=== PATIENT | female | born 1990 | race Hispanic/Latino ===

== ENCOUNTER 2025-03-23 15:48 | Emergency (ER) | payer BC, OTHER | END 2025-03-23 18:12 | disposition home or self-care (01) | LOC: CSHERS 15:48 | DX: J02.9 Acute pharyngitis, unspecified (principal); R59.0 Localized enlarged lymph nodes; H65.93 Unspecified nonsuppurative otitis media, bilateral | CPT/HCPCS: 87081; 87430; 99283 ==